=== PATIENT | male | born 1965 | race American Indian/Alaskan Native ===

== ENCOUNTER 2017-12-11 16:23 | Emergency (ER) | payer MEDICAID, OTHER ==
[2017-12-11 16:24] VITALS: BMI 22.0
[2017-12-11] MEDS ORDERED: Sodium Chloride 0.9% 1,000 ML IV STA (19:12)
--- NOTE | 2017-12-11 19:21 | ED PDOC ---
HPI: Psych/Substance Abuse Time Seen by Provider: 12/11/17 16:33 Chief Complaint (Nursing): Medical Clearance Chief Complaint (Provider): Medical Clearance ED Caveat: Uncooperative History Per: Patient Involuntary Hold By: Local Law Enforcement Additional History Per: Law Enforcement Additional Complaint(s): Patient is a 52 y/o male who was brought in by police for medical clearance. Patient is under arrest, and while in a holding cell he had a seizure. Per prior records, patient has had seizures in the past and previously was taking Phenytoin. Currently patient is refusing to answer questions. States he has no complaints and does not want to be seen. PMD: none Past Medical History Reviewed: Historical Data, Nursing Documentation, Vital Signs Vital Signs: Last Vital Signs Temp 98.3 F 12/11/17 16:27 Pulse 79 12/11/17 16:27 Resp 16 12/11/17 16:27 BP 145/81 12/11/17 16:27 Pulse Ox 98 12/11/17 16:27 - Medical History PMH: Asthma, Diabetes, HTN, Peripheral Edema, Seizures Denies: Deep Vein Thrombosis, Chronic Kidney Disease - Surgical History Surgical History: Denies: Pacemaker Other surgeries: Amputation of left toes (3, 4, 5) - Family History Family History: States: Unknown Family Hx - Social History Current smoker - smoking cessation education provided: Yes Alcohol: < 2 Drinks/Day Drugs: Opiates (heroin) - Immunization History Hx Tetanus Toxoid Vaccination: Yes Hx Influenza Vaccination: No Hx Pneumococcal Vaccination: No - Home Medications Home Medications: Ambulatory Orders Medication Instructions Recorded Insulin Glargine,Hum.rec.anlog 30 unit SC HS #1 bottle 10/23/13 [Lantus] Insulin Lispro [humALOG] 8 units SC AC ml 05/26/17 amLODIPine [Norvasc] 5 mg PO DAILY #30 tab 09/16/17 cloNIDine [Catapres] 0.1 mg PO TID #90 tab 09/16/17 levETIRAcetam [Keppra] 500 mg PO BID #60 tab 09/16/17 Ibuprofen [Motrin] 1 tab PO TID PRN #30 tab 10/28/17 - Allergies Allergies/Adverse Reactions: Allergies Allergy/AdvReac Type Severity Reaction Status Date / Time Fish Containing Products Allergy VOMITING Verified 12/11/17 16:27 tomato Allergy VOMITING Verified 12/11/17 16:27 FISH AdvReac VOMITING Verified 12/11/17 16:27 tomatoes Allergy RASH Uncoded 12/11/17 16:27 Review of Systems ROS Statement: Except As Marked, All Systems Reviewed And Found Negative Cardiovascular: Negative for: Chest Pain Respiratory: Negative for: Shortness of Breath Gastrointestinal: Negative for: Vomiting Neurological: Positive for: Seizures. Negative for: Headache Physical Exam - Reviewed Nursing Documentation Reviewed: Yes Vital Signs Reviewed: Yes - Physical Exam Appears: Positive for: Non-toxic, No Acute Distress Head Exam: Positive for: ATRAUMATIC, NORMAL INSPECTION, NORMOCEPHALIC Skin: Positive for: Normal Color, Warm, Dry Eye Exam: Positive for: EOMI, Normal appearance, PERRL Neck: Positive for: Normal, Painless ROM Cardiovascular/Chest: Positive for: Regular Rate, Rhythm. Negative for: Murmur Respiratory: Positive for: Normal Breath Sounds. Negative for: Accessory Muscle Use, Respiratory Distress Extremity: Positive for: Normal ROM. Negative for: Pedal Edema, Deformity Neurologic/Psych: Positive for: Alert, Oriented - Laboratory Results Result Diagrams: 12/11/17 19:40 12/11/17 20:41 - ECG O2 Sat by Pulse Oximetry: 98 (RA) Pulse Ox Interpretation: Normal Medical Decision Making Medical Decision Making: Time: 17:20 Initial Plan: * Accucheck * Crisis evaluation Crisis saw and evaluated patient; pt asked for juice. 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 Finger stick: [phone] Ordered IV fluids and blood work. Repeat accucheck at 1105. [address] Terrell. Pt refused accuCheck. PT evaluation by crisis. Scribe Attestation: Documented by Paulina Chadwick, acting as a scribe for Charlee Yee PA-C Provider Scribe Attestation: All medical record entries made by the Scribe were at my direction and personally dictated by me. I have reviewed the chart and agree that the record accurately reflects my personal performance of the history, physical exam, medical decision making, and the department course for this patient. I have also personally directed, reviewed, and agree with the discharge instructions and disposition. Disposition - Clinical Impression Clinical Impression: Diabetes - Patient ED Disposition Is Patient to be Admitted: No Counseled Patient/Family Regarding: Diagnosis, Need For Followup - Disposition Disposition: Routine/Home Disposition Time: 00:22 Condition: GOOD Additional Instructions: Pt medically and psychiatrically stable for incarceration. Instructions: Type 2 Diabetes Forms: [facility] (Malay)
[2017-12-11] MEDS ORDERED: Albuterol-Ipratrop 3 mg / 0.5 (3 ml) UD ONE (19:46)
[2017-12-11 20:01] LABS: BASO # 0.1 K/uL (0.0-0.2); BASO % 1.3 % (0.0-2.0); EOS # 0.1 K/uL (0.0-0.7); HEMOGLOBIN 11.2 g/dL (12.0-18.0); LYMPH # 1.7 K/uL (1.0-4.3); MEAN CELL VOLUME 86.1 fl (80.0-94.0); MEAN CORPUSCULAR HEMOGLOBIN 28.1 pg (27.0-31.0); MEAN CORPUSCULAR HGB CONC 32.7 g/dL (33.0-37.0); MEAN PLATELET VOLUME 7.2 fl (7.2-11.7); MONO # 0.4 K/uL (0.0-0.8); MONO % 8.7 % (0.0-10.0); NRBC % 0.1 % (0.0-0.0); RBC 3.96 Mil/uL (4.40-5.90); RED CELL DISTRIBUTION WIDTH 17.2 % (11.5-14.5); WHITE BLOOD COUNT 4.2 K/uL (4.8-10.8)
[2017-12-11 21:22] LABS: BLOOD UREA NITROGEN 13 mg/dl (9-20); CALCIUM 8.8 mg/dL (8.4-10.2); GFR AFRICAN-AMERICAN > 60; GFR NON-AFRICAN AMERICAN > 60
[2017-12-11 21:26] LABS: ALB/GLOB RATIO 0.8 (1.0-2.1); ALBUMIN 3.3 g/dL (3.5-5.0); ALT/SGPT 26 U/L (21-72); AST/SGOT 36 U/L (17-59)
[2017-12-11] MEDS ORDERED: Insulin Regular 100 units/ml SC STA (21:36)
[2017-12-11 22:11] VITALS: RESP 18
[2017-12-11 23:05] VITALS: O2SAT 98
[2017-12-11] MEDS ORDERED: Insulin Regular 100 units/ml IV STA (23:07)
[2017-12-11] MEDS ORDERED: Insulin Regular 100 units/ml ONE (23:14)
[2017-12-12 00:24] VITALS: BP 143/76; PULSE 87; TEMP 98.2
== END 2017-12-12 00:44 ==
LOC: H.ER 16:23
DX: E11.9 Type 2 diabetes mellitus without complications; I10 Essential (primary) hypertension; J45.909 Unspecified asthma, uncomplicated; R56.9 Unspecified convulsions; Z79.4 Long term (current) use of insulin
CPT/HCPCS: 80053; 82948; 85025; 96360; 99283; J7040